=== PATIENT | female | born 1955 | race Caucasian/White ===

== ENCOUNTER 2017-03-09 16:24 | Inpatient (IN) | payer BC, OTHER ==
[~2017-03-09 16:24] MED LIST: Iopamidol 370 76% 100 ML VIAL ONE
[2017-03-09] MEDS ORDERED: Ondansetron HCl/PF 4 MG/2 ML Vial ONE (17:11)
[2017-03-09 17:32] LABS: #Basophils 0.1 thou/uL (0.0-0.2); #Eosinphils 0.2 thou/uL (0.0-0.7); #Lymphocytes 1.7 thou/uL (1.20-3.40); #Monocytes 0.7 thou/uL (0.11-0.59); #Neutrophils 6.7 thou/uL (1.40-6.50); %Basophils 0.6 % (0.0-1.0); %Eosinophils 1.8 % (0.0-10.0); %Lymphocytes 18.2 % (21.0-51.0); %Monocytes 7.1 % (0.0-10.0); Hematocrit 38.5 % (36.0-47.0); Mean Platelet Volume 9.4 fL (7.4-10.4); Red Blood Cell (RBC) Count 4.27 mill/uL (4.20-5.40); White Blood Cell (WBC) Count 9.3 thou/uL (4.8-10.8)
[2017-03-09 17:49] LABS: ALT (SGPT) 31 U/L (8-55); AST (SGOT) 24 U/L (5-34); Alkaline Phosphatase 83 U/L (40-150); Anion Gap 15 mmol/L (10-20); BUN (Urea Nitrogen) 14 mg/dL (9.8-20.1); Bilirubin, Total 0.3 mg/dL (0.2-1.2); Calc. Creatinine Clearance 0 mL/min (70-130); Calcium 9.6 mg/dL (7.8-10.44); Carbon Dioxide 24 mmol/L (23-31); Chloride 104 mmol/L (98-107); Estimated GFR-MDRD 76; Globulin 3.3 g/dL (2.4-3.5); Lipase 14 U/L (8-78); Protein, Total 7.2 g/dL (6.0-8.3)
[2017-03-09 18:35] LABS: Bilirubin Negative (Negative); Blood, Urine Negative (Negative); Glucose, Urine (Dipstick) Negative (Negative); Ketone, Urine Negative (Negative); Nitrite Negative (Negative); Protein, Urine (Dipstick) Negative (Neg-Trace); Urobilinogen 0.2 mg/dL (0.2-1.0)
--- NOTE | 2017-03-09 19:31 | CT ---
CT OF ABDOMEN AND PELVIS PERFORMED WITH CONTRAST ENHANCEMENT: 03/09/17 HISTORY: Left lower quadrant pain. The lung bases are clear. The liver, spleen, pancreas, and gallbladder regions appear unremarkable. The gallbladder is somewha t contracted. The right and left adrenal glands are normal. A hypodensity involving the upper pole of the left kid andrés is statistically most likely a cyst. No obstruction of either kidney. No significant periaortic or mesenteric adenopathy. The appendix is retrocecal in location and normal in size. There is eviden ce of some free air. This is related to some diverticulitis of the junction of the descending and si gmoid colon. There is evidence of some contained perforation along the wall of the colon in this reg ion with also some free air up around the liver. I do not see any signs of abscess collection. No si gnificant free fluid in the pelvis. IMPRESSION: Left lower quadrant diverticulitis with perforation. Findings discussed with Dr. Bartholomew. POS: [facility]
[2017-03-09] MEDS ORDERED: Ciprofloxacin Lactate/D5W 400 mg/200 ml Premix ONE (20:09)
[2017-03-09] MEDS ORDERED: metroNIDAZOLE 500 MG/100 ML BAG ONE (21:11)
[2017-03-09] MEDS ORDERED: Ondansetron HCl/PF 4 MG/2 ML Vial IVP PRN (22:23)
[2017-03-09] MEDS ORDERED: Ondansetron ODT 4 MG TAB SL PRN (22:23)
[2017-03-09] MEDS ORDERED: Morphine 2 MG/ML SYRINGE SLOW IVP PRN ×2 (22:24→22:25)
[2017-03-09 22:43] VITALS: BMI 23.8
[2017-03-09] MEDS: Sodium Chloride 0.9% 1,000 ML IV SCH (22:51)
--- NOTE | 2017-03-10 00:03 | HP ---
PRIMARY CARE PHYSICIAN: Dr. Dhiraj Rossi. CHIEF COMPLAINT: Abdominal pain. HISTORY OF PRESENT ILLNESS: Ms. Harrison is a very pleasant 61-year-old white female, appears much younger than her stated age. She had a 3-4 day history of left lower quadrant pain. It was increas ed with movement, sneezing, palpation and was accompanied by low grade temperature of 99-100.9. She had no known alleviating factors. She had no dysuria or hematuria. No flank tenderness. No nausea and vomiting, although she does fe el nauseated at present. She had no melena, hematochezia or other problems. She followed in the emergency department at [facility] emergency department tonight, work up there showed normal labs. She did have some left lower quadrant tenderness. CT scan was done th at showed left lower quadrant diverticulitis with perforation that was currently contained, but did have a small amount of free air. She subsequently transferred here for higher level of care. She r eceived 1 liter of IV fluids, Cipro and Flagyl intravenously there was and was transferred here. On arrival here, she is comfortable. Pain level around 2/10. She has no other current complaints. PAST MEDICAL HISTORY: 1. Anxiety, very mild that covered with fluoxetine. 2. Osteopenia. PAST SURGICAL HISTORY: 1. Colonoscopy in 2012 that was reportedly negative. 2. Rhinoplasty around age 13. 3. All 4 wisdom teeth removed. 4. Radial keratotomy many years ago. HOME MEDICATIONS: Fluoxetine 20 mg p.o. daily. She is not taking them for 3-4 days. ALLERGIES: SULFA/TRIMETHOPRIM. She developed a left arm rash. FAMILY HISTORY: Significant for mother with breast cancer, at age 69 and 2 maternal uncles wit h lung cancer. No history of clotting or bleeding disorder, no immune dysfunction. SOCIAL HISTORY: Negative for habits x3. She is . She is a retired director of a nonprofit organization locally. REVIEW OF SYSTEMS: A 10-point review of systems was performed, negative for all other systems excep t as stated per HPI. PHYSICAL EXAMINATION: VITAL SIGNS: Temperature 98.8, pulse 84, blood pressure 114/77, respiratory 18, satting 98% on room air. GENERAL: She is awake, alert, oriented x3. She appears to be in zero distress. HEENT: Normocephalic, atraumatic. Pupils equal, round and reactive bilaterally to light. Mucous m embranes are moist. There are no visible lesions. There is no thrush. NECK: Supple, without lymphadenopathy, JVD, or thyromegaly. Normal carotid upstrokes and no bruits . LUNGS: Clear bilaterally. She has good air movement, symmetrical chest excursion, no wheezes, rale s or rhonchi. No prolonged expiratory phase. CARDIOVASCULAR: She has normal S1, S2, no S3, S4. No audible murmurs. ABDOMEN: Soft. It is tender in the left lower quadrant with a slight rebound. She has no rigidity and no guarding. EXTREMITIES: Show no cyanosis, no clubbing, no edema, 2+ peripheral pulse in the dorsalis pedis and posterior tibial arteries. SKIN: Warm, moist, and well perfused. She has no rashes, no lesions. MUSCULOSKELETAL: Normal to inspection with no inflamed joints. No increased heat and no palpable j oint effusions. NEUROLOGIC: Cranial nerves II through XII are grossly intact without any focal neurologic deficits. LABORATORY DATA: CMP is completely normal. Creatinine 0.77, electrolytes are normal. Lipase 14. Urinalysis clean. CBC showed a white count of 9.3, hemoglobin 13.1, hematocrit 38.5 and platelets 220,000. RADIOGRAPHIC STUDIES: CT scan showed left lower quadrant diverticulitis with perforation that is cu rrently contained. There was a small amount of free air. ASSESSMENT AND PLAN: 1. Diverticulitis with perforation: Perforation now appears to be contained. There is a small charm[place] unt of free air. We will continue Levaquin and Flagyl IV. We will keep her n.p.o. We will ask Gen [facility] Surgery, Dr. Copeland, to evaluate the patient. I do not think there is any operative intervent ion at this point, we will defer to Dr. Copeland's expertise. 2. History of anxiety: Currently on fluoxetine. She is n.p.o. at present. We will continue to mo nitor. 3. Left lower quadrant abdominal pain: Pain medicines are available. Patient is currently comfort able without receiving anything. We will continue current management.
[2017-03-10] MEDS ORDERED: Artificial Tear Sol 15 ML BOT EA EYE PRN (00:05)
[2017-03-10 00:06] LABS: #Eosinphils 0.2 thou/uL (0.0-0.7); #Lymphocytes 1.5 thou/uL (1.20-3.40); #Monocytes 0.5 thou/uL (0.11-0.59); #Neutrophils 5.6 thou/uL (1.40-6.50); %Basophils 0.2 % (0.0-1.0); %Lymphocytes 19.1 % (21.0-51.0); %Monocytes 6.8 % (0.0-10.0); Hematocrit 36.8 % (36.0-47.0); Mean Platelet Volume 8.3 fL (7.4-10.4); Red Blood Cell (RBC) Count 3.95 mill/uL (4.20-5.40); White Blood Cell (WBC) Count 7.8 thou/uL (4.8-10.8)
[2017-03-10 00:23] LABS: Anion Gap 12 mmol/L (10-20); BUN (Urea Nitrogen) 11 mg/dL (9.8-20.1); Calc. Creatinine Clearance 95 mL/min (70-130); Carbon Dioxide 24 mmol/L (23-31); Chloride 108 mmol/L (98-107); Estimated GFR-MDRD 85
[2017-03-10] MEDS: metroNIDAZOLE 500 MG in Premix Bag 1 BAG IVPB SCH ×4 (03:43→20:54)
[2017-03-10] MEDS: Sodium Chloride 0.9% 1,000 ML IV SCH (05:38)
[2017-03-10] MEDS: Famotidine/PF 20 mg/2ml Vial SLOW IVP SCH ×2 (08:15→20:54)
--- NOTE | 2017-03-10 11:15 | PDOC.PN ---
- Subjective Encounter Start Date: 03/10/17 Encounter Start Time: 09:00 Pt seen for followup re: abdo pain. Denies chest pain, shortness of breath, fevers. Abdo pain better. No vomiting. - Objective Resuscitation Status: Resuscitation Status FULL:Full Resuscitation MAR Reviewed: Yes Vital Signs & Weight: Vital Signs (12 hours) Temp Pulse Resp BP Pulse Ox 03/10/17 08:00 98.1 F 79 16 110/70 99 03/10/17 05:19 98.8 F 78 16 117/74 98 03/10/17 00:45 99.2 F 77 16 126/76 99 Result Diagrams: 03/09/17 23:56 03/09/17 23:56 Phys Exam - Physical Examination Constitutional: NAD HEENT: moist MMs, oral pharynx no lesions Neck: supple Respiratory: clear to auscultation bilateral Cardiovascular: RRR Gastrointestinal: soft, positive bowel sounds Mild LLQ tenderness, no guarding or rigidity Psychiatric: normal affect Dx/Plan (1) Abdominal pain Code(s): R10.9 - UNSPECIFIED ABDOMINAL PAIN Status: Acute (2) Bowel perforation Code(s): K63.1 - PERFORATION OF INTESTINE (NONTRAUMATIC) Status: Acute (3) Diverticulitis Code(s): K57.92 - DVTRCLI OF INTEST, PART UNSP, W/O PERF OR ABSCESS W/O BLEED Status: Acute - Plan continue antibiotics, DVT proph w/SCDs * . Continue IV levofloxacin, IV metronidazole, await surgical consult. NPO for now. Review of Systems - Review of Systems Constitutional: negative: Fever, Chills, Sweats, Weakness, Malaise Respiratory: negative: Cough, Dry, Shortness of Breath, Hemoptysis, SOB with Excertion, Pleuritic Pain, Sputum, Wheezing Cardiovascular: negative: Chest Pain, Palpitations, Orthopnea, Paroxysmal Noc. Dyspnea, Edema, Light Headedness Gastrointestinal: Abdominal Pain. negative: Nausea, Vomiting, Diarrhea, Constipation, Melena, Hematochezia - Medications/Allergies Allergies/Adverse Reactions: Allergies Allergy/AdvReac Type Severity Reaction Status Date / Time sulfamethoxazole Allergy Verified 03/09/17 23:00 [From Bactrim] trimethoprim [From Bactrim] Allergy Verified 03/09/17 23:00 Medications: Current Medications Artificial Tears (Tears Renewed 15ml Bottle) 0 drop EA EYE PRN PRN PRN Reason: DRY EYES Famotidine (Pepcid) 20 mg SLOW IVP Q12HR [facility] Last Admin: 03/10/17 08:15 Dose: 20 mg Levofloxacin 500 mg/ Device 100 mls @ 100 mls/hr IVPB Q24HR [facility] Last Admin: 03/09/17 23:54 Dose: 100 mls Metronidazole 500 mg/ Device 100 mls @ 100 mls/hr IVPB 0300,0900,1500,2100 [facility] Last Admin: 03/10/17 08:15 Dose: 100 mls Sodium Chloride (Flush - Normal Saline) 10 ml IVF Q12HR [facility]AN[facility] Last Admin: 03/10/17 08:15 Dose: 10 ml Sodium Chloride (Flush - Normal Saline) 10 ml IVF PRN PRN PRN Reason: Saline Flush
[2017-03-10] MEDS: Acetaminophen 325 MG TAB PO PRN (20:54)
[2017-03-10] MEDS: Ondansetron HCl/PF 4 MG/2 ML Vial IVP PRN (20:54)
--- NOTE | 2017-03-10 23:33 | CON ---
DATE OF CONSULTATION: 03/10/2017 REASON FOR CONSULTATION: Abdominal pain. HISTORY: Ms. Harrison is a 61-year-old woman who presented to the hospital with a several day histo ry of abdominal pain, mostly in the left lower quadrant. She was running some low grade fevers at h ome in the 99-100.9 range, but has not had any fevers here in hospital. She has not had any melena or hematochezia and has no previous similar episodes. She had a normal colonoscopy a few years back at [facility]. Currently, her abdominal pain is less than when she came to [facility] after receiving pain medicine and IV antibiotics. She is feeling hungry and otherwise we ll. PAST MEDICAL HISTORY: Osteopenia. PAST SURGICAL HISTORY: Rhinoplasty, oral surgery and radial keratotomy. OUTPATIENT MEDICATIONS: Include fluoxetine, although she is not taking these since the onset of her symptoms. FAMILY HISTORY: Noncontributory. PHYSICAL EXAMINATION: VITAL SIGNS: Afebrile with normal vital signs, blood pressure 153/93. GENERAL: Reveals a pleasant woman in no acute distress. She is not flushed or toxic, jaundiced or icteric. HEENT: Unremarkable. NECK: Supple, without lymphadenopathy or thyroid nodules. HEART: Regular in its rate and rhythm without murmurs, rubs or gallops. LUNGS: Clear to auscultation bilaterally. ABDOMEN: Soft and nondistended. She is tender to palpation in the left lower quadrant greater than right lower quadrant. The upper abdomen is nontender. She does not exhibit rigidity, rebound or g uarding and she has no notable hernias or masses. She states that the tenderness in the left lower quadrant is less than it was when she came in. EXTREMITIES: Warm and well perfused without edema. NEUROLOGIC: No focal deficits. PSYCHIATRIC: Alert, oriented and appropriate. LABORATORY AND IMAGING DATA: White count is normal with no left shift. Electrolytes are unremarkab le and LFTs yesterday were normal. Urine was clear. CT images are reviewed and I agree with the wr aidaen report. She has inflammation of her sigmoid colon with microperforation and some bubbles of e xtraluminal air in the mesentery of the bowel. ASSESSMENT AND PLAN: Sigmoid diverticulitis without evidence of complication. She is responding to IV antibiotics with improvement in her pain and tenderness. I am going to advance her diet to arron r liquids and if she tolerates this and does not any increasing pain on examination, we will likely advance it further tomorrow. If she continues to respond to IV antibiotics, then I would not recomm end surgery during this admission. If she has repeated episodes of diverticulitis then elective col ectomy can be considered. Sometimes this is done for lingering symptoms as well, although most peop le recover well from diverticulitis. She is in agreement with the plan and we will continue to foll ow as her diverticulitis is managed medically.
[2017-03-11] MEDS: metroNIDAZOLE 500 MG in Premix Bag 1 BAG IVPB SCH ×4 (03:06→22:28)
[2017-03-11] MEDS: Acetaminophen 325 MG TAB PO PRN ×2 (07:38→22:27)
[2017-03-11] MEDS: Famotidine/PF 20 mg/2ml Vial SLOW IVP SCH ×2 (08:47→22:29)
--- NOTE | 2017-03-11 11:07 | PDOC.PN ---
- Subjective Encounter Start Date: 03/11/17 Encounter Start Time: 11:06 Subjective: feels well.tolareting Po clear liquid diet. loose stools since this am -: no nausea/vomiting.no AP - Objective Resuscitation Status: Resuscitation Status FULL:Full Resuscitation MAR Reviewed: Yes Vital Signs & Weight: Vital Signs (12 hours) Temp Pulse Resp BP Pulse Ox 03/11/17 08:00 97.8 F 76 16 131/81 93 L Result Diagrams: 03/09/17 23:56 03/09/17 23:56 Additional Labs: Accuchecks 03/10/17 19:56 POC Glucose 92 Phys Exam - Physical Examination Constitutional: NAD HEENT: PERRLA, moist MMs, sclera anicteric, oral pharynx no lesions Neck: no nodes, no JVD, supple, full ROM Respiratory: no wheezing, no rales, no rhonchi, clear to auscultation bilateral Cardiovascular: RRR, no significant murmur, no rub, gallop Gastrointestinal: soft, non-tender, no distention, positive bowel sounds Musculoskeletal: no edema, pulses present Neurological: non-focal, normal sensation, moves all 4 limbs Psychiatric: normal affect, A&O x 3 Skin: no rash Dx/Plan (1) Diverticulitis Code(s): K57.92 - DVTRCLI OF INTEST, PART UNSP, W/O PERF OR ABSCESS W/O BLEED Status: Acute (2) Abdominal pain Code(s): R10.9 - UNSPECIFIED ABDOMINAL PAIN Status: Acute (3) Bowel perforation Code(s): K63.1 - PERFORATION OF INTESTINE (NONTRAUMATIC) Status: Acute (4) Osteopenia Code(s): M85.80 - OT DISRD OF BONE DENSITY AND STRUCTURE, UNSPECIFIED SITE Status: Chronic - Plan medical Mm per GS.hemodynamically stable -: cont IV ABx. advancve diet as tolerated. -: KYLAH fisher in next 24 hours -: am labs * . Review of Systems - Review of Systems Constitutional: negative: Fever, Chills, Sweats, Weakness, Malaise, Other Respiratory: negative: Cough, Dry, Shortness of Breath, Hemoptysis, SOB with Excertion, Pleuritic Pain, Sputum, Wheezing Cardiovascular: negative: Chest Pain, Palpitations, Orthopnea, Paroxysmal Noc. Dyspnea, Edema, Light Headedness, Other Gastrointestinal: negative: Nausea, Vomiting, Abdominal Pain, Diarrhea, Constipation, Melena, Hematochezia, Other Genitourinary: negative: Dysuria, Frequency, Incontinence, Hematuria, Retention , Other Musculoskeletal: negative: Neck Pain, Shoulder Pain, Arm Pain, Back Pain, Hand Pain, Leg Pain, Foot Pain, Other Neurological: negative: Weakness, Numbness, Incoordination, Change in Speech, Confusion, Seizures, Other - Medications/Allergies Allergies/Adverse Reactions: Allergies Allergy/AdvReac Type Severity Reaction Status Date / Time sulfamethoxazole Allergy Verified 03/09/17 23:00 [From Bactrim] trimethoprim [From Bactrim] Allergy Verified 03/09/17 23:00 Medications: Current Medications Acetaminophen (Tylenol) 650 mg PO Q4H PRN PRN Reason: Headache/Fever or Pain Last Admin: 03/11/17 07:38 Dose: 650 mg Artificial Tears (Tears Renewed 15ml Bottle) 0 drop EA EYE PRN PRN PRN Reason: DRY EYES Famotidine (Pepcid) 20 mg SLOW IVP Q12HR [facility] Last Admin: 03/11/17 08:47 Dose: 20 mg Levofloxacin 500 mg/ Device 100 mls @ 100 mls/hr IVPB Q24HR [facility] Last Admin: 03/10/17 23:57 Dose: 100 mls Metronidazole 500 mg/ Device 100 mls @ 100 mls/hr IVPB 0300,0900,1500,2100 [facility] Last Admin: 03/11/17 08:47 Dose: 100 mls Ondansetron HCl (Zofran) 4 mg IVP Q6H PRN PRN Reason: Nausea/Vomiting Last Admin: 03/10/17 20:54 Dose: 4 mg Sodium Chloride (Flush - Normal Saline) 10 ml IVF Q12HR [facility] Last Admin: 03/11/17 08:48 Dose: 10 ml Sodium Chloride (Flush - Normal Saline) 10 ml IVF PRN PRN PRN Reason: Saline Flush
[2017-03-11] MEDS: Ondansetron HCl/PF 4 MG/2 ML Vial IVP PRN (16:46)
[2017-03-11 21:06] VITALS: TEMP 98
--- NOTE | 2017-03-11 21:50 | PRG ---
DATE OF SERVICE: 03/11/2017 Ms. Harrison is feeling pretty good today. She has a little minimal nausea, which she thinks is due to her medications; however, her abdominal pain has significantly improved and she is tolerating he r clear liquid diet. She has been afebrile and her white count is normal. Her abdomen is soft and nondistended with just minimal tenderness near the left iliac crest. ASSESSMENT: Diverticulitis, clinically improving on antibiotic therapy. I have advanced her diet t o full liquids and I will continue to follow her as an inpatient.
[2017-03-12] MEDS: Acetaminophen 325 MG TAB PO PRN ×2 (03:28→09:41)
[2017-03-12] MEDS: metroNIDAZOLE 500 MG in Premix Bag 1 BAG IVPB SCH ×2 (03:30→09:36)
[2017-03-12 05:21] LABS: Anion Gap 13 mmol/L (10-20); BUN (Urea Nitrogen) 9 mg/dL (9.8-20.1); Calc. Creatinine Clearance 93 mL/min (70-130); Calcium 9.1 mg/dL (7.8-10.44); Carbon Dioxide 22 mmol/L (23-31); Chloride 109 mmol/L (98-107); Estimated GFR-MDRD 82
[2017-03-12] MEDS ORDERED: FLUoxetine HCl 20 MG CAP PO SCH (09:00)
[2017-03-12] MEDS: Famotidine/PF 20 mg/2ml Vial SLOW IVP SCH (09:35)
[2017-03-12 09:56] VITALS: BP 146/86
--- NOTE | 2017-03-12 10:00 | PDOC.PN ---
- Subjective Encounter Start Date: 03/12/17 Encounter Start Time: 09:59 Subjective: feels much better.pain under control -: able to tolerate full liquid diet -: no nausea/vomiting - Objective Resuscitation Status: Resuscitation Status FULL:Full Resuscitation MAR Reviewed: Yes Vital Signs & Weight: Vital Signs (12 hours) Temp Pulse Resp BP Pulse Ox 03/12/17 08:22 98.0 F 85 16 03/12/17 08:00 97.9 F 70 18 146/86 H 96 Weight Admit Weight 161 lb 12.8 oz Weight 161 lb 12.8 oz I&O: 03/11/17 03/12/17 03/13/17 06:59 06:59 06:59 Intake Total 1300 Balance 1300 Result Diagrams: 03/09/17 23:56 03/12/17 03:47 Phys Exam - Physical Examination Constitutional: NAD HEENT: PERRLA, moist MMs, sclera anicteric, oral pharynx no lesions Neck: no nodes, no JVD, supple, full ROM Respiratory: no wheezing, no rales, no rhonchi, clear to auscultation bilateral Cardiovascular: RRR, no significant murmur, no rub, gallop Gastrointestinal: soft, non-tender, no distention, positive bowel sounds minimal TTP LLQ Musculoskeletal: no edema, pulses present Neurological: non-focal, normal sensation, moves all 4 limbs Dx/Plan (1) Diverticulitis Code(s): K57.92 - DVTRCLI OF INTEST, PART UNSP, W/O PERF OR ABSCESS W/O BLEED Status: Acute (2) Abdominal pain Code(s): R10.9 - UNSPECIFIED ABDOMINAL PAIN Status: Acute (3) Bowel perforation Code(s): K63.1 - PERFORATION OF INTESTINE (NONTRAUMATIC) Status: Acute (4) Osteopenia Code(s): M85.80 - OTH DISRD OF BONE DENSITY AND STRUCTURE, UNSPECIFIED SITE Status: Chronic - Plan continue antibiotics, out of bed/ambulate, DVT proph w/SCDs Discussed with GS.will change ABx to PO . -: Ok to DC after next dose.OP f/u w PCP & GS. -: hemodynamically stable. * . Review of Systems - Review of Systems Constitutional: negative: Fever, Chills, Sweats, Weakness, Malaise, Other Respiratory: negative: Cough, Dry, Shortness of Breath, Hemoptysis, SOB with Excertion, Pleuritic Pain, Sputum, Wheezing Cardiovascular: negative: Chest Pain, Palpitations, Orthopnea, Paroxysmal Noc. Dyspnea, Edema, Light Headedness, Other Gastrointestinal: negative: Nausea, Vomiting, Abdominal Pain, Diarrhea, Constipation, Melena, Hematochezia, Other Genitourinary: negative: Dysuria, Frequency, Incontinence, Hematuria, Retention , Other Musculoskeletal: negative: Neck Pain, Shoulder Pain, Arm Pain, Back Pain, Hand Pain, Leg Pain, Foot Pain, Other Neurological: negative: Weakness, Numbness, Incoordination, Change in Speech, Confusion, Seizures, Other - Medications/Allergies Allergies/Adverse Reactions: Allergies Allergy/AdvReac Type Severity Reaction Status Date / Time sulfamethoxazole Allergy Verified 03/09/17 23:00 [From Bactrim] trimethoprim [From Bactrim] Allergy Verified 03/09/17 23:00 Medications: Current Medications Acetaminophen (Tylenol) 650 mg PO Q4H PRN PRN Reason: Headache/Fever or Pain Last Admin: 03/12/17 09:41 Dose: 650 mg Artificial Tears (Tears Renewed 15ml Bottle) 0 drop EA EYE PRN PRN PRN Reason: DRY EYES Famotidine (Pepcid) 20 mg SLOW IVP Q12HR [facility] Last Admin: 03/12/17 09:35 Dose: Not Given Fluoxetine HCl (Prozac) 20 mg PO DAILY [facility] Last Admin: 03/12/17 09:41 Dose: 20 mg Levofloxacin 500 mg/ Device 100 mls @ 100 mls/hr IVPB Q24HR [facility] Last Admin: 03/12/17 00:57 Dose: 100 mls Metronidazole 500 mg/ Device 100 mls @ 100 mls/hr IVPB 0300,0900,1500,2100 [facility] Last Admin: 03/12/17 09:36 Dose: Not Given Ondansetron HCl (Zofran) 4 mg IVP Q6H PRN PRN Reason: Nausea/Vomiting Last Admin: 03/11/17 16:46 Dose: 4 mg Sodium Chloride (Flush - Normal Saline) 10 ml IVF Q12HR [facility] Last Admin: 03/12/17 09:36 Dose: Not Given Sodium Chloride (Flush - Normal Saline) 10 ml IVF PRN PRN PRN Reason: Saline Flush Last Admin: 03/11/17 16:47 Dose: 10 ml
[2017-03-12] MEDS ORDERED: metroNIDAZOLE 500 MG TAB PO SCH (14:45)
--- NOTE | 2017-03-12 17:03 | PRG ---
DATE OF SERVICE: 03/12/2017 SUBJECTIVE: Ms. Harrison is feeling good today. Her abdominal pain continues to improve and her na usea has resolved. She is tolerating her full liquid diet and has had a bowel movement. She is afe brile with normal vital signs and her white count is normal. Her abdomen is soft and nondistended. She has very minimal tenderness in the left lower quadrant, which is continuing to improve daily. ASSESSMENT AND PLAN: Resolving diverticulitis. She can advance her diet to a soft diet and transit ion to oral antibiotics. If she tolerates this, she can be discharged home and follow up with me in the clinic in two weeks' time.
--- NOTE | 2017-03-13 00:52 | DIS ---
DATE OF ADMISSION: 03/09/2017 DATE OF DISCHARGE: 03/12/2017 CONDITION AT THE TIME OF DISCHARGE: Stable and improved. DISCHARGE DIAGNOSES: 1. Diverticulitis. 2. Concern for bowel perforation. 3. History of anxiety. 4. Osteopenia. DISCHARGE MEDICATIONS: Include Prozac 20 mg daily, metronidazole 500 mg p.o. t.i.d. for 7 more days , levofloxacin 500 mg p.o. daily with 7 more days and Fioricet 250 mg p.o. daily for 10 days. PRIMARY CARE PHYSICIAN: Dhiraj Rossi D.O. FOLLOWUP: With primary care physician as well as General Surgery, Dr. Copeland. PROCEDURES DONE IN THE HOSPITAL: Include the CT scan of the abdomen and pelvis which showed left lo wer quadrant diverticulitis with perforation along the wall of the colon and this region and some fr ee air up around the liver. No sign of abscess collection. CONSULTATIONS: Include General Surgery, Dr. Copeland. HISTORY OF PRESENTING ILLNESS: Ms. Harrison is a very pleasant 61-year-old otherwise healthy female who presented to the Emergency Room with complaints of left lower quadrant abdominal pain. She was hemodynamically stable upon presentation. A CT scan of the abdomen was done in the ER which showed left lower quadrant diverticulitis with questionable perforation. She was started on empiric antib iotics with ciprofloxacin and Flagyl and received IV fluids and was transferred to our facility and was admitted with a presumptive diagnosis of diverticulitis. Please see admission history and physi willem for further details. Neurosurgery was consulted for the same. HOSPITAL COURSE: The patient remained quite asymptomatic throughout her hospitalization. She was h emodynamically stable. She was seen by Dr. Copeland from General surgical team. She recommended [facility] management at this time. Her IV antibiotics were continued and she was started on clear liquid diet and transitioned to full liquid diet. The patient tolerated this very well and had no episode s of fever or hemodynamic instability. Her labs were followed and they remained unremarkable. She did not have any evidence of leukocytosis or left shift. Her electrolytes were unremarkable as well . Eventually, the patient's antibiotics were changed to oral and she was cleared by General Surgery fo r discharge with outpatient followup. She was seen and examined prior to discharge and discharge plan was discussed with the patient who v erbalized understanding. Please see hospitalist progress note from today's date for further detail including [id number] interaction.
== END 2017-03-12 16:36 | disposition home or self-care (01) | DRG 392 ==
LOC: SCSER 16:24 → T4-A 19:36
PROVIDERS: ADMIT Internal Medicine Addiction Medicine; ATTEND Internal Medicine Addiction Medicine
DX: K57.20 Diverticulitis of large intestine with perforation and abscess without bleeding (principal); F41.9 Anxiety disorder, unspecified; M85.80 Other specified disorders of bone density and structure, unspecified site; Z88.2 Allergy status to sulfonamides
CPT/HCPCS: 36415; 36416; 74177; 80048; 80053; 81003; 83690; 85025; 96361; 96365; 96375; A4216; J0744; J1956; J2270; J2405; S0028